=== PATIENT | male | born 1935 | race Caucasian/White ===

== ENCOUNTER 2017-07-26 19:38 | Inpatient (IN) | payer MEDICARE, OTHER ==
[~2017-07-26] VITALS: Ht 170.2 cm; Wt 81.5 kg
--- NOTE | ~2017-07-26 | PN ---
PATIENT:OCTAVIA TRAVIS MEDICAL RECORD: [id number] LOCATION:SHAKILA NuñezVon ADMISSION DATE: 07/26/17 PROGRESS NOTE DATE OF SERVICE: 08/12/2017 SUBJECTIVE: The patient's case was discussed with staff. He has no new complaint. OBJECTIVE: The patient denies intent to harm himself or others. He generally tolerates his medicines well. He has fairly significant and convincing evidence of cognitive impairment. His long-term prognosis is guarded. TRANSINT:[id number] Voice Confirmation ID: [id number] DOCUMENT ID: [id number] YOBANI COLLINS MD at 1215 CC: [id number] DICTATION DATE: 08/12/17 1453 WOOL HAT FORMING MACHINE TENDER: 08/12/172005 ADM IN [facility] [address] [place] [address]
--- NOTE | ~2017-07-26 | PN ---
PATIENT:OCTAVIA TRAVIS MEDICAL RECORD: [id number] LOCATION:SHAKILA NuñezVon ADMISSION DATE: 07/26/17 PROGRESS NOTE DATE OF SERVICE: 08/01/2017 SUBJECTIVE: The patient's case was discussed with staff. He has no new complaint. OBJECTIVE: The patient is in good behavioral control with poor insight about his condition. He tolerates his medicines well. ASSESSMENT: No change in diagnoses. PLAN: The patient has been sexually inappropriate in a very significant way. He does not display that this morning, but he was very inappropriate over the weekend. I did not ask him about this, as I suspect almost certainly he will not remember it, but even if he does, probably he is not going to discuss it with me. His long-term prognosis is guarded. I have reviewed his medicines and we will maintain them today. TRANSINT:[id number] Voice Confirmation ID: [id number] DOCUMENT ID: [id number] YOBANI COLLINS MD at 1029 CC: [id number] DICTATION DATE: 08/01/17 1133 DEPOT AGENT: 08/01/17 1216 ADM IN [place] [id number] [place] [id number]
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
--- NOTE | ~2017-07-26 | PN ---
PATIENT:OCTAVIA TRAVIS MEDICAL RECORD: [id number] LOCATION:SHAKILA Nuñez112 ADMISSION DATE: 07/26/17 PROGRESS NOTE DATE OF SERVICE: 08/13/2017 SUBJECTIVE: The patient's case was discussed with staff. He has no new complaint. OBJECTIVE: The patient is in good behavioral control with limited insight about his condition. He tolerates his medicines well. ASSESSMENT: No change in diagnoses. PLAN: Supportive and educational interventions were made. Correction prognosis is guarded. I anticipate he can be transitioned out of the hospital soon if this level of improvement is maintained. TRANSINT:[id number] Voice Confirmation ID: [id number] DOCUMENT ID: [id number] YOBANI COLLINS MD at 1349 CC: [id number] DICTATION DATE: 08/13/17 1239 ROTARY KILN OPERATOR: 08/13/172033 ADM IN [facility] [address] [place] [id number]
--- NOTE | ~2017-07-26 | PN ---
PATIENT:OCTAVIA TRAVIS MEDICAL RECORD: [id number] LOCATION:SHAKILA Nuñez112 ADMISSION DATE: 07/26/17 PROGRESS NOTE DATE OF SERVICE: 08/10/2017 SUBJECTIVE: No new complaint. OBJECTIVE: The patient is walking better, no further sexual inappropriate behavior. On exam, mood is euthymic. Affect is fairly bland. Speech is somewhat repetitive. Content of thought is negative for overt psychosis. Sensorium unchanged. ASSESSMENT: No change in diagnosis. PLAN: 1. Continue current medications. 2. Continue supportive therapy. TRANSINT:[id number] Voice Confirmation ID: [id number] DOCUMENT ID: [id number] JEAN PAUL ARAUZ III, MD at 0452 CC: [id number] DICTATION DATE: 08/10/17 1139 OFFICER LIEUTENANT: 08/10/17 1449 ADM IN [place] [address] [place] [address]
--- NOTE | ~2017-07-26 | PN ---
PATIENT:OCTAVIA TRAVIS MEDICAL RECORD: [id number] LOCATION:SHAKILA Garza ADMISSION DATE: 07/26/17 PROGRESS NOTE DATE OF SERVICE: 08/08/2017 SUBJECTIVE: No new complaint. OBJECTIVE: The patient overall is doing better. No further apparent seizure activity. No further sexually inappropriate behavior over the weekend. Valproic acid blood level was 39.0. On exam, mood is euthymic. Affect is reserved. Speech somewhat terse. Content of thought is unchanged. Sensorium unchanged. ASSESSMENT: No change in diagnosis. PLAN: 1. Continue current medications. 2. Continue supportive therapy. TRANSINT:[id number] Voice Confirmation ID: [id number] DOCUMENT ID: [id number] JEAN PAUL ARAUZ III, MD at 1049 CC: [id number] DICTATION DATE: 08/08/17 1156 SPINDLE SANDER: 08/08/17 1435 ADM IN [place] [id number] [place] [id number]
--- NOTE | ~2017-07-26 | PN ---
PATIENT:OCTAVIA TRAVIS MEDICAL RECORD: [id number] LOCATION:SHAKILA Nuñez112 ADMISSION DATE: 07/26/17 PROGRESS NOTE DATE OF SERVICE: 08/18/2017 SUBJECTIVE: No new complaint. The patient simply states he is ready to leave the hospital. OBJECTIVE: The patient has been doing well, taking medications as prescribed. We are awaiting confirmation from group home for placement. On exam, mood is euthymic. Affect reserved. Speech rather low in volume. Content of thought is unchanged. Sensorium unchanged. ASSESSMENT: No change in diagnosis. PLAN: 1. Maintain current medication. 2. Continue supportive therapy. TRANSINT:[id number] Voice Confirmation ID: [id number] DOCUMENT ID: [id number] JEAN PAUL ARAUZ III, MD at 1506 CC: [id number] DICTATION DATE: 08/18/17 1136 SR. PAYROLL MANAGER: 08/18/17 1150 ADM IN [facility] [address] [place] [address]
--- NOTE | ~2017-07-26 | PN ---
PATIENT:OCTAVIA TRAVIS MEDICAL RECORD: [id number] LOCATION:SHAKILA Garza ADMISSION DATE: 07/26/17 PROGRESS NOTE DATE OF SERVICE: 08/05/2017 SUBJECTIVE: The patient has again made suicidal statements. He stated that he wanted to get a pill to "go to sleep forever." OBJECTIVE: This morning, the patient appears more euthymic. Affect is very constricted. Speech is rather terse. Content of thought is as noted above. Sensorium shows no change. ASSESSMENT: No change in diagnosis. PLAN: 1. We will maintain current medications. 2. We will be checking a valproic acid level. 3. Continue supportive therapy. TRANSINT:[id number] Voice Confirmation ID: [id number] DOCUMENT ID: [id number] JEAN PAUL ARAUZ III, MD at 0549 CC: [id number] DICTATION DATE: 08/05/17 1226 CIGARETTE TESTER: 08/05/17 1335 ADM IN [place] [id number] [place] [address]
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
--- NOTE | ~2017-07-26 | PN ---
PATIENT:OCTAVIA TRAVIS MEDICAL RECORD: [id number] LOCATION:SHAKILA Joaquin112 ADMISSION DATE: 07/26/17 PROGRESS NOTE DATE OF SERVICE: 08/04/2017 SUBJECTIVE: No new complaint. OBJECTIVE: The patient has continued to be very inappropriate sexually and requires redirection. He did require p.r.n. medication last night. On exam today, mood is slightly irritable. Affect is very shallow. Speech is tangential. Content of thought continues to exhibit delusional ideation. Sensorium shows no change. ASSESSMENT: No change in diagnosis. PLAN: 1. Add Depakote Sprinkles 250 mg b.i.d. 2. Continue other current medications. 3. Continue supportive therapy. TRANSINT:[id number] Voice Confirmation ID: [id number] DOCUMENT ID: [id number] JEAN PAUL ARAUZ III, MD at 0143 CC: [id number] DICTATION DATE: 08/04/17 1016 PAYROLL AND BENEFITS SPECIALIST: 08/04/17 1450 ADM IN [place] [id number] [place] [address]
--- NOTE | ~2017-07-26 | PN ---
PATIENT:OCTAVIA TRAVIS MEDICAL RECORD: [id number] LOCATION:SHAKILA Nuñez112 ADMISSION DATE: 07/26/17 PROGRESS NOTE DATE OF SERVICE: 08/11/2017 SUBJECTIVE: No new complaint noted. OBJECTIVE: BOC assessment has come back. We will be working on placement. On exam, mood is for the most part euthymic. Affect is very shallow. Speech tends to be tangential. Content of thought is negative for overt psychosis. Sensorium unchanged. ASSESSMENT: No change in diagnosis. PLAN: 1. Maintain current medication. 2. Continue supportive therapy. TRANSINT:[id number] Voice Confirmation ID: [id number] DOCUMENT ID: [id number] JEAN PAUL ARAUZ III, MD at 1100 CC: [id number] DICTATION DATE: 08/11/17 1146 RN NEONATAL: 08/11/17 1209 ADM IN [place] [address] [place] [address]
--- NOTE | ~2017-07-26 | PN ---
PATIENT:OCTAVIA TRAVIS MEDICAL RECORD: [id number] LOCATION:SHAKILA Nuñez112 ADMISSION DATE: 07/26/17 PROGRESS NOTE DATE OF SERVICE: 08/09/2017 SUBJECTIVE: No new complaint. OBJECTIVE: Staff report the patient is much more appropriate. No further inappropriate sexual comments or behaviors. He is taking medication as prescribed. On exam, mood is pleasant and euthymic. Affect is bland. Speech is somewhat terse, but no other language disorder. Content of thought is negative for overt psychosis. Sensorium unchanged. ASSESSMENT: No change in diagnosis. PLAN: 1. Maintain current medications. 2. Continue supportive therapy. TRANSINT:[id number] Voice Confirmation ID: [id number] DOCUMENT ID: [id number] JEAN PAUL ARAUZ III, MD at 1037 CC: [id number] DICTATION DATE: 08/09/17 1137 OIL WELL SERVICES DISPATCHER: 08/09/17 1229 ADM IN [facility] [address] [place] [address]
--- NOTE | ~2017-07-26 | PN ---
PATIENT:OCTAVIA TRAVIS MEDICAL RECORD: [id number] LOCATION:SHAKILA Nuñez112 ADMISSION DATE: 07/26/17 PROGRESS NOTE DATE OF SERVICE: 08/15/2017 SUBJECTIVE: No new problems noted. OBJECTIVE: The patient has been pleasant and alert. No further inappropriate behavior or speech. The patient is cooperative with staff. On exam, mood is euthymic, affect is pleasant. Speech is tangential. Content of thought, essentially unchanged. Sensorium unchanged. ASSESSMENT: No change in diagnosis. PLAN: 1. Continue all current medication. 2. Continue supportive therapy. TRANSINT:[id number] Voice Confirmation ID: [id number] DOCUMENT ID: [id number] JEAN PAUL ARAUZ III, MD at 1053 CC: [id number] DICTATION DATE: 08/15/17 1216 SALES AGENT PROTECTIVE SERVICE: 08/15/17 1225 ADM IN [place] [id number] [place] [address]
--- NOTE | ~2017-07-26 | PN ---
PATIENT:OCTAVIA TRAVIS MEDICAL RECORD: [id number] LOCATION:SHAKILA Nuñez112 ADMISSION DATE: 07/26/17 PROGRESS NOTE DATE OF SERVICE: 08/17/2017 SUBJECTIVE: No new complaint. OBJECTIVE: The patient continues to show good behavioral control. He is tolerating medications and has been cooperative. We are awaiting approval from a care home. On exam, mood is euthymic. Affect bland. Speech is tangential. Content of thought negative for overt psychosis. Sensorium unchanged. ASSESSMENT: No change in diagnosis. PLAN: 1. Continue current medications. 2. Continue supportive therapy. TRANSINT:[id number] Voice Confirmation ID: [id number] DOCUMENT ID: [id number] JEAN PAUL ARAUZ III, MD at 0716 CC: [id number] DICTATION DATE: 08/17/17 1124 ADVERTISING CAMPAIGN MANAGER: 08/17/17 1305 ADM IN [place] [address] [place] [id number]
--- NOTE | ~2017-07-26 | PN ---
PATIENT:OCTAVIA TRAVIS MEDICAL RECORD: [id number] LOCATION:SHAKILA Nuñez112 ADMISSION DATE: 07/26/17 PROGRESS NOTE DATE OF SERVICE: 07/28/2017 SUBJECTIVE: The patient angrily states to the examiner, "you call my and tell her I am coming after her, I am going to kill her." OBJECTIVE: The patient continues to show severe paranoid delusional ideation. He has not been aggressive toward staff or other patients, but he continues to harbor violent thoughts about his . Staff has warned the not to come visit him while he is on the unit and staff was also convinced the that he does need placement. PHYSICAL EXAMINATION: On exam, mood is very irritable and angry. Affect is brittle. Speech is overly loud and repetitive. Content of thought as noted above, the patient shows paranoid delusional ideation. Sensorium is unchanged. ASSESSMENT: No change in diagnosis. PLAN: 1. Continue current medications, although we will likely add perphenazine at night. 2. Continue supportive therapy. TRANSINT:[id number] Voice Confirmation ID: [id number] DOCUMENT ID: [id number] JEAN PAUL ARAUZ III, MD at 0601 CC: [id number] DICTATION DATE: 07/28/17 1223 PEPPER CUTTER: 07/28/17 1325 ADM IN [place] [id number] [place] [address]
--- NOTE | ~2017-07-26 | PN ---
PATIENT:OCTAVIA TRAVIS MEDICAL RECORD: [id number] LOCATION:SHAKILA Garza ADMISSION DATE: 07/26/17 PROGRESS NOTE DATE OF SERVICE: 08/03/2017 SUBJECTIVE: No new complaint. OBJECTIVE: Staff report that the patient is continuing to exhibit a gait disturbance. He tends to lean laterally. He has not suffered a fall, but does exhibit a wide-based gait. The patient has not shown any sexual inappropriateness over the last 24 hours. He is more cooperative with staff. On exam, mood is for the most part euthymic. Affect is rather brittle. Speech is tangential. Content of thought shows moderate delusional ideation. Sensorium shows no change. ASSESSMENT: No change in diagnosis. PLAN: 1. We will discontinue routine Valium and p.r.n. Zanaflex. 2. Maintain current doses of other medications. 3. Continue supportive therapy. TRANSINT:[id number] Voice Confirmation ID: [id number] DOCUMENT ID: [id number] JEAN PAUL AARUZ III, MD at 1946 CC: [id number] DICTATION DATE: 08/03/17 1137 ERP ENGINEER: 08/03/17 1203 ADM IN [facility] [address] [place] [id number]
--- NOTE | ~2017-07-26 | PN ---
PATIENT:OCTAVIA TRAVIS MEDICAL RECORD: [id number] LOCATION:SHAKILA Nuñez112 ADMISSION DATE: 07/26/17 PROGRESS NOTE DATE OF SERVICE: 08/16/2017 SUBJECTIVE: No new complaint. OBJECTIVE: The patient continues to do fairly well. Hermelinda assessment has been done. Anticipate discharge in few days. On exam, mood is euthymic. Affect pleasant. Speech is somewhat tangential. Content of thought unchanged. Sensorium unchanged. ASSESSMENT: No change in diagnosis. PLAN: 1. Continue all current medications. 2. Continue supportive therapy. TRANSINT:[id number] Voice Confirmation ID: [id number] DOCUMENT ID: [id number] JEAN PAUL ARAUZ III, MD at 1054 CC: [id number] DICTATION DATE: 08/16/17 1208 NET C DEVELOPER: 08/16/17 1255 ADM IN [facility] [address] [place] [address]
--- NOTE | ~2017-07-26 | PN ---
PATIENT:OCTAVIA TRAVIS MEDICAL RECORD: [id number] LOCATION:SHAKILA Garza ADMISSION DATE: 07/26/17 PROGRESS NOTE DATE OF SERVICE: 07/29/2017 SUBJECTIVE: No new complaint noted. OBJECTIVE: The patient is somewhat drowsy today. He has been exhibiting poor oral intake. Staff reports he continues to show paranoid ideation. On exam today, mood is euthymic. Affect is very constricted. Speech is terse. Content of thought as noted above. Sensorium is unchanged. ASSESSMENT: No change in diagnosis. PLAN: 1. Maintain current medication. 2. Continue supportive therapy. TRANSINT:[id number] Voice Confirmation ID: [id number] DOCUMENT ID: [id number] JEAN PAUL ARAUZ III, MD at 0503 CC: [id number] DICTATION DATE: 07/29/17 1140 MERCHANDISING ASSISTANT: 07/29/17 1211 ADM IN [facility] [address] [place] [address]
--- NOTE | ~2017-07-26 | PN ---
PATIENT:OCTAVIA TRAVIS MEDICAL RECORD: [id number] LOCATION:SHAKILA Garza ADMISSION DATE: 07/26/17 PROGRESS NOTE DATE OF SERVICE: 08/02/2017 SUBJECTIVE: No new complaint. OBJECTIVE: Staff reports the patient has been extremely sexually inappropriate. He requires frequent redirection because of these. He continues to have paranoid delusions regarding his , but he is not voicing homicidal ideation today. On exam, mood somewhat irritable. Affect is very shallow. Speech is tangential. Content of thought is positive for delusional ideation. Sensorium shows no change. ASSESSMENT: No change in diagnosis. PLAN: 1. Change perphenazine to 4 mg at bedtime. 2. Maintain other medications. 3. Continue supportive therapy. TRANSINT:[id number] Voice Confirmation ID: [id number] DOCUMENT ID: [id number] JEAN PAUL ARAUZ III, MD at 1020 CC: [id number] DICTATION DATE: 08/02/17 1147 DOG CONTROL OFFICER: 08/02/17 1212 ADM IN [place] [address] [place] [address]
--- NOTE | ~2017-07-26 | PN ---
PATIENT:OCTAVIA TRAVIS MEDICAL RECORD: [id number] LOCATION:SHAKILA Nuñez112 ADMISSION DATE: 07/26/17 PROGRESS NOTE DATE OF SERVICE: 08/19/2017 SUBJECTIVE: The patient's case was discussed with staff. He has no new complaint. OBJECTIVE: The patient is in good behavioral control with poor insight about his condition. He tolerates his medicines well. ASSESSMENT: No change in diagnoses. PLAN: Brief supportive and educational interventions were made. The patient is significantly impaired cognitively. It is my understanding that arrangements have been made for him to be placed in assisted living with some extra supervision. I see no reason why that could not take place today. TRANSINT:[id number] Voice Confirmation ID: [id number] DOCUMENT ID: [id number] YOBANI COLLINS MD at 1338 CC: [id number] DICTATION DATE: 08/19/17 1316 CHEMICAL MACHINE TENDER: 08/19/17 1333 DIS IN 08/19/17 [place] [id number] [place] [address]
[2017-07-26 21:19] VITALS: BP 145/61; BMI 25.7
[2017-07-27 06:23] LABS: BASOPHILS 0.1 % (0-2); EOSINOPHILS 1.6 % (0-7); HEMATOCRIT 42.3 % (42.0-54.0); HEMOGLOBIN 14.6 g/dL (13.5-17.5); IMMATURE GRANULOCYTES 0.1 % (0-5); MCH 31.3 pg (26.0-34.0); MCHC 34.5 g/dL (31.0-37.0); MCV 90.8 fL (80.0-100.0); MEAN PLATELET VOLUME 11.4 fL (7.4-10.4); MONOCYTES 11.4 % (2-11); NEUTROPHILS 65.8 % (40-80); PLATELET COUNT 156 10x3/uL (130-400); RBC 4.66 10x6/uL (4.20-6.10); RDW 13.7 % (11.5-14.5); WBC 6.8 10x3/uL (4.8-10.8)
[2017-07-27 07:11] LABS: ALBUMIN 4.3 g/dL (3.4-5.0); ALKALINE PHOSPHATASE 70 U/L (46-116); ALT (SGPT) 55 U/L (10-68); CALC OSMOLALITY 275 mosm/kg (275-300); CALCIUM 9.2 mg/dL (8.5-10.1); CARBON DIOXIDE 28.4 mmol/L (21.0-32.0); CHLORIDE - SERUM 99 mmol/L (98-107); CHOL - HDL RATIO 2.9 ratio (2.3-4.9); CHOLESTEROL, TOTAL 147 mg/dL (0-200); CREATININE - SERUM 0.9 mg/dL (0.6-1.3); GLUCOSE 104 mg/dL (74-106); HDL CHOLESTEROL 50 mg/dL (32-96); LDL CHOLESTEROL 74 mg/dL (0-100); LDL-HDL RATIO 1.5 ratio (1.5-3.5); POTASSIUM - SERUM 4.1 mmol/L (3.5-5.1); PROTEIN - SERUM 6.7 g/dL (6.4-8.2); SODIUM 138 mmol/L (136-145); THYROID STIMULATING HORMONE 1.67 uIU/mL (0.36-3.74); TRIGLYCERIDE 118 mg/dL (30-200); UREA NITROGEN 13 mg/dL (7-18); eGFR NON AFRICAN AMERICAN 86 mL/min (90-120)
[2017-07-27 07:51] LABS: HEMOGLOBIN A1C 5.5 % (4.8-6.0)
[2017-07-27 08:00] VITALS: BP 151/094
[2017-07-27 08:09] VITALS: BMI 25.8
[2017-07-27] MEDS ORDERED: BAYER CHEWABLE81 MG PO (13:39)
[2017-07-27] MEDS ORDERED: LIPITOR10 MG PO (13:40)
[2017-07-27] MEDS ORDERED: COREG12.5 MG PO (13:43)
[2017-07-27] MEDS ORDERED: VITAMIN B-122500 MCG SL (13:44)
[2017-07-27] MEDS ORDERED: VALIUM5 MG PO (13:45)
[2017-07-27] MEDS ORDERED: VOLTAREN75 MG PO (13:46)
[2017-07-27] MEDS ORDERED: PROZAC20 MG PO (13:49)
[2017-07-27] MEDS ORDERED: XALATAN 0.0052.5 ML EACH EYE (13:50)
[2017-07-27] MEDS ORDERED: ZANAFLEX4 MG PO (13:53)
[2017-07-27] MEDS ORDERED: ULTRAM50 MG PO (13:55)
[2017-07-27] MEDS ORDERED: ALPHAGAN P 0.155 ML LEFT EYE (13:58)
[2017-07-27 19:36] VITALS: BP 149/59
[2017-07-28 07:22] LABS: RAPID PLASMA REAGIN Non Reactive (Non Reactive)
[2017-07-28 08:16] LABS: VITAMIN D 25 HYDROXY 16.5 ng/mL (30.0-100.0)
[2017-07-28 09:37] VITALS: BP 124/81
[2017-07-28 14:16] LABS: FOLATE (FOLIC ACID) - SERUM >20.0 ng/mL (>3.0)
[2017-07-28 20:35] VITALS: BP 140/76
[2017-07-29 09:32] VITALS: BP 144/70
[2017-07-29 20:26] VITALS: BP 156/87
[2017-07-30 08:13] VITALS: BP 167/079
[2017-07-31 07:00] VITALS: BP 175/71
[2017-07-31 19:38] VITALS: BP 155/63
[2017-08-01 08:44] VITALS: BP 150/093
[2017-08-01 19:17] VITALS: BP 136/79
[2017-08-02 07:00] VITALS: BP 193/97
[2017-08-02 13:15] VITALS: BP 142/68
[2017-08-02 19:54] VITALS: BP 136/70
[2017-08-03 10:32] VITALS: BP 120/80
[2017-08-03 14:05] VITALS: Ht 170.2 cm; Wt 81.5 kg
[2017-08-03 19:31] VITALS: BP 147/61
[2017-08-04 09:42] VITALS: BP 148/82
[2017-08-04 13:10] LABS: ALBUMIN 3.4 g/dL (3.4-5.0); ANION GAP 17.7 mmol/L (8-16); BILIRUBIN - TOTAL 0.36 mg/dL (0.2-1.3); CALCIUM 8.7 mg/dL (8.5-10.1); CARBON DIOXIDE 21.4 mmol/L (21.0-32.0); CREATININE - SERUM 1.1 mg/dL (0.6-1.3); POTASSIUM - SERUM 3.1 mmol/L (3.5-5.1)
[2017-08-04 19:30] VITALS: BP 109/64
[2017-08-05 09:19] VITALS: BP 134/059
[2017-08-05 19:30] VITALS: BP 130/68
[2017-08-06 08:34] VITALS: BP 144/73
[2017-08-06 19:37] VITALS: BP 124/55
[2017-08-07 07:00] VITALS: BP 141/70
[2017-08-07 20:10] VITALS: BP 113/60
[2017-08-08 07:00] VITALS: BP 165/81
[2017-08-08 20:06] VITALS: BP 131/63
[2017-08-09 08:56] VITALS: BP 170/74
[2017-08-09 19:44] VITALS: BP 138/77
[2017-08-10 10:46] VITALS: BP 142/90
[2017-08-10 20:41] VITALS: BP 110/54
[2017-08-11 09:31] VITALS: BP 148/80
[2017-08-11 19:30] VITALS: BP 163/41
[2017-08-12 08:30] VITALS: BP 134/052
[2017-08-12 19:53] VITALS: BP 138/86
[2017-08-13 09:11] VITALS: BP 172/79
[2017-08-13 19:30] VITALS: BP 126/82
[2017-08-14 07:00] VITALS: BP 115/66
[2017-08-14 20:10] VITALS: BP 150/60
[2017-08-15 07:00] VITALS: BP 172/82
[2017-08-15 19:46] VITALS: BP 122/58
[2017-08-16 08:30] VITALS: BP 143/78
[2017-08-16 19:36] VITALS: BP 135/72
[2017-08-17 09:47] VITALS: BP 140/71
[2017-08-17 19:05] VITALS: BP 116/53
[2017-08-18 08:30] VITALS: BP 146/080
[2017-08-18 19:30] VITALS: BP 138/79
[2017-08-19 10:40] VITALS: BP 138/80
[2017-08-19] MEDS ORDERED: MEGACE40 MG PO (11:23)
[2017-08-19] MEDS ORDERED: DEPAKOTE SPRIN125 MG PO (11:24)
[2017-08-19] MEDS ORDERED: PERPHENAZINE2 MG PO (11:24)
[2017-08-19] MEDS ORDERED: CLOTRIM ANTIFUN15 GM TOPICAL (11:25)
[2017-08-19] MEDS ORDERED: NYSTATIN1 PWD TOPICAL (11:25)
[2017-08-19] MEDS ORDERED: VITAMIN D5000 UNIT PO (11:26)
== END 2017-08-19 13:25 | disposition home or self-care (01) | DRG 57 ==
LOC: D.PSYCH 19:38
PROVIDERS: Family Medicine; Psychiatry & Neurology Psychiatry
DX: G30.9 Alzheimer's disease, unspecified (principal); F02.81 Dementia in other diseases classified elsewhere, unspecified severity, with behavioral disturbance; I69.954 Hemiplegia and hemiparesis following unspecified cerebrovascular disease affecting left non-dominant side; J44.9 Chronic obstructive pulmonary disease, unspecified; M19.90 Unspecified osteoarthritis, unspecified site; K44.9 Diaphragmatic hernia without obstruction or gangrene; H40.9 Unspecified glaucoma; I25.10 Atherosclerotic heart disease of native coronary artery without angina pectoris; Z95.1 Presence of aortocoronary bypass graft; E53.8 Deficiency of other specified B group vitamins; E55.9 Vitamin D deficiency, unspecified; F41.8 Other specified anxiety disorders; G47.33 Obstructive sleep apnea (adult) (pediatric); K59.00 Constipation, unspecified; E78.5 Hyperlipidemia, unspecified; G89.4 Chronic pain syndrome; I45.10 Unspecified right bundle-branch block; E87.6 Hypokalemia